=== PATIENT | male | born 1975 ===

== ENCOUNTER 2022-09-17 06:21 | Day surgery (SDC) | payer OTHER, SELFPAY ==
--- NOTE | 2022-09-16 14:34 | HPE_ITS ---
History of Present Illness History of Present Illness Chief Complaint: Left inguinal hernia Narrative: He is here for evaluation of a left-sided inguinal hernia.? He says he first noticed it back in the spring, when he was pushing his riding lawnmower.? He felt a pop in his left groin, and noticed some swelling.? He felt some fullness there, and he was able to push it back down.? Since then, has been fairly stable.? He is able to manage his symptoms pretty well with hernia belt.? On occasion, he notices that it feels a little more full, and he has some discomfort associated with the bowel.? He denies any obstructive symptoms like nausea or vomiting.? He underwent an ultrasound of his left groin after meeting with his primary care physician.? Results of that test demonstrate a fat- containing left-sided inguinal hernia.? Otherwise, he is in good health and his review of systems is negative. Since his last visit to the office, he has been started on rosuvastatin as well as losartan. He is tolerating his medications without any problems. Pertinent Surgical Information Open left-sided inguinal herniorrhaphy with mesh today. PFSH All Active Problems Left inguinal hernia (Acute) Hyperlipidemia (Acute) Elevated blood pressure reading without diagnosis of hypertension (Acute) Medical History Bradycardia Depression HTN (hypertension) Vitamin D deficiency Surgical History History of thumb surgery hardware left side Hx of Achilles tendon repair bilateral Left hydrocele Social History Smoking/Tobacco Use Status: Current every day Tobacco Type: cigarettes Tobacco: How many years used: 10 Smoking risk assessment performed?: Yes Alcohol Intake: current Alcohol Intake frequency: a few times a week Alcohol type: beer Drug use: Occasionally Substance use type: does not use and marijuana Details: 3-4 times week Do you feel safe at home: Yes Do you feel safe in your relationship?: Yes Meds Allergies and Home Medications Allergies Allergy/AdvReac Type Severity Reaction Status Date / Time Penicillins Allergy Unknown Verified 09/17/22 06:31 Home Medications Medication Instructions Recorded Confirmed Type losartan 25 mg tablet 25 mg PO HS 09/15/22 09/17/22 History rosuvastatin 5 mg tablet 5 mg PO HS 09/15/22 09/17/22 History Exam Const General: cooperative, healthy appearing and comfortable Orientation: awake and oriented x3 Eyes General: appearance normal, both eyes and all related structures Conjunctivae: conjunctivae normal Sclera: sclerae normal Resp Effort & Inspection: normal respiratory effort and able to speak in complete sentences Cardio Jugular venous pressure: no JVD Rate: regular rate GI Inspection: non-distended Palpation: soft, no guarding, hernia (Reducible left inguinal) and nontender Auscultation: normal bowel sounds Skin General skin exam: normal turgor Neuro General: patient alert, patient awake and patient oriented x3 Cognition: normal cognition Extrem Right lower extremity: no edema Left lower extremity: no edema
--- NOTE | 2022-09-16 14:35 | PDOC.DSDIS_ITS ---
Date of service: 09/17/22 Time of Service: 09:01 Discharge Plan Disposition Patient Disposition: HOME Condition: Good Discharge Details Reason For Visit: Left inguinal herniorrhaphy Attending Provider: Onur Garvey Primary Care Provider: Unknown,Unknown Home Meds and New Rx's Prescriptions: New tramadol 50 mg tablet 50 mg PO Q8H PRN (Reason: pain) Qty: 9 0RF Rx Instructions: Take 1 tablet by mouth every 8 hours as needed for severe pain. Continued losartan 25 mg Tablet 25 mg PO HS rosuvastatin 5 mg Tablet 5 mg PO HS Discharge Instructions Instructions: Inguinal Hernia Repair (DC) Additional Instructions: 1. Resume all of your medications. 2. Okay to use tylenol and ibuprofen over the counter as needed. 3. Use [] as needed for severe pain. 4. Leave bandage in place for 24 hours, then remove. 5. Shower with warm soapy water. Pat dry. Use a bandaid if needed to protect your clothing. 6. No soaking or tub baths until I see you in the office. 7. No heavy lifting until I see you in the office. 8. Call the office (or go directly to the emergency room after hours) if you notice any of the following: Develop chills (warm to touch), or if you have a thermometer and your temperature is above 101 Difficulty breathing or difficultly swallowing Persistent vomiting Any bleeding ? exceeding one tablespoon 6. Call your physician if the site where your intravenous was started becomes red, swollen, painful, and warm to touch. Referrals: Onur Garvey MD [ [facility] STAFF PHYSICIAN] - Activity:: No heavy lifting Remove Dressings/Wound Care:: 24 hours Shower/Bathe:: 24 hours Diet:: As Tolerated DS: Diagnosis Discharge Diagnosis (1) Left inguinal hernia: Status: Acute Asessment and Plan: Follow-up in my office 10 to 14 days for routine surgical postoperative visit
--- NOTE | 2022-09-16 14:42 | ROE_ITS ---
Date of service: 09/17/22 Time of Service: 08:58 Operative Note Operative Note DATE OF PROCEDURE: 09/17/22 PRE-OP DIAGNOSIS: Left inguinal hernia POST-OP DIAGNOSIS: other (indirect lft inguinal hernia) PROCEDURE: Open left inguinal herniorrhaphy SURGEON: Onur Garvey DERRICKMAN HELPER: Corina Fairbanks ANESTHESIA TYPE: Local By Surgeon and General LMA/ETT Refer to Anesthesia Record ESTIMATED BLOOD LOSS: 50 COMPLICATIONS: None Patient was transported to: PACU Patient's condition: stable Implants: Bard large mesh patch and plug Indications: Chris is a 46 year old male with a symptomatic left inguinal hernia Procedure Description: I began by confirming the correct site with the patient. Next, after induction of general anesthesia, the anesthesia specialists performed ultrasound guided TAP block. Surgical site was then prepped and draped in the usual fashion. I began by making an oblique incision over the left inguinal region. I dissected down through the skin to the deep fascia. Next, I incised the fascia along the length of the inguinal canal to the external ring. I then carefully identified the ilioinguinal nerve. Once this was complete, I bluntly dissected the shelving edge of the inguinal ligament down towards the pubic tubercle. Here, I encircled all cord structures with a [place] drain. Next, I began dissecting the specific cord structures. Great care was taken to spare the vas deferens and the blood supply to the testicle. Next, I isolated the hernia sac from the other inguinal structures. I reduced it back to its normal anatomic position. Using a large Bard mesh plug, and obliterated space, and affixed it in place w ith interrupted Prolene stitch. Next, I buttressed the posterior floor of the inguinal canal with a large mesh patch. I started by fixing it to the pubic tubercle. Next, I used Prolene sutures to affix it to the shelving edge of the inguinal ligament and the conjoined tendon. Laterally I tacked it to the transversalis fascia and reconstructed an internal ring without any strain on the cord structures. Once this was complete, I irrigated the surgical field. It appeared hemostatic. I then closed the anterior portion of the fascia to reconstruct the front wall of the inguinal canal. I did this with Vicryl stitches. Once again, I irrigated the surgical field and inspected for hemostasis. Finally, I approximated the superficial fascia and the deep layers of the skin with absorbable suture. Skin was closed with absorbable sutures. Bandages were applied, the patient was awakened and transferred to the recovery unit.
[2022-09-17] VITALS (7 sets, daily range): BP systolic 105–127; BP diastolic 78–93; PULSE 58–69; RESP 9–18; TEMP 36.2–36.6; O2SAT 96–99; BMI 27.8
--- NOTE | 2022-09-17 06:47 | ANES.PREOP_ITS ---
General Info Date of Service Date Performed: 09/17/22 Height: 5 ft 7 in Weight: 80.7 kg Body Mass Index (BMI): 27.8 Surgical Procedure: Operation Date: 09/17/22 07:40 Proposed Procedure Side Surgeon p Herniorrhaphy Inguinal w/Mesh Left Onur Garvey MD Meds Allergies and Home Medications Allergies Allergy/AdvReac Type Severity Reaction Status Date / Time Penicillins Allergy Unknown Verified 09/17/22 06:31 Home Medication Medication Instructions Recorded losartan 25 mg tablet 25 mg PO HS 09/15/22 rosuvastatin 5 mg tablet 5 mg PO HS 09/15/22 Current Visit Medications: Current Medications Generic Name Dose Route Start Last Admin Trade Name Freq PRN Reason Stop Dose Admin Acetaminophen 1,000 mg 09/17/22 06:00 Acetaminophen 500 Mg Tab PO 10/16/22 23:59 PREOP [facility] Celecoxib 200 mg 09/17/22 06:00 Celecoxib 200 Mg Cap PO 10/16/22 23:59 PREOP [facility] Gabapentin 600 mg 09/17/22 06:00 Gabapentin 300 Mg Cap PO 10/16/22 23:59 PREOP [facility] Ringer's Solution 1,000 mls @ 80 mls/hr 09/17/22 06:00 IV 10/16/22 23:59 INFUSION [facility] Vancomycin/PEG/NADA/Lysine/Water 2 gm in 400 mls @ 200 mls/hr 09/17/22 06:00 Vancocin Injection IV 09/17/22 18:00 PREOP [facility] IV Miscellaneous Supplies 1 each 09/17/22 06:00 Iv Access IV 10/16/22 23:59 DIRECTED CRISTÓBAL Morphine Sulfate 2 mg 09/16/22 14:42 Morphine 4 Mg/Ml Syr IVP Q1H PRN PRN Sodium Chloride 0 ml 09/17/22 06:00 Normal Saline Flush 10 Ml Syr IV 10/16/22 23:59 PRN PRN Sodium Chloride 0 ml 09/17/22 06:00 Normal Saline 10 Ml Vial IJ 10/16/22 23:59 DIRECTED PRN Sterile Water 0 ml 09/17/22 06:00 Water,Injection,Sterile 10 Ml Vial IJ 10/16/22 23:59 DIRECTED PRN Tramadol HCl 50 mg 09/16/22 14:42 Tramadol 50 Mg Tab PO Q6H PRN PRN Pain PFSH Active Problems Active Problems: Problem Status Onset Code Left inguinal hernia K40.90 Hyperlipidemia E78.5 Elevated blood pressure reading without diagnosis of hypertension R03.0 Medical History Medical History Bradycardia Depression HTN (hypertension) Vitamin D deficiency Surgical History Surgical History History of thumb surgery hardware left side Hx of Achilles tendon repair bilateral Left hydrocele Tobacco Smoking/Tobacco Use Status: Current every day Tobacco Type: cigarettes Smoking cigarettes per day: 10 Alcohol Alcohol Intake: current Alcohol intake frequency: a few times a week Alcohol type: beer Substance Use Substance use: Occasionally Substance use type: does not use and marijuana Details: 3-4 times week Vital Signs and Lab Results Vital Signs Most Recent Vital Signs in EMR: Most Recent Vital Signs Temp Pulse Resp BP Pulse Ox 36.4 C L 65 16 121/88 99 09/17/22 06:34 09/17/22 06:34 09/17/22 06:34 09/17/22 06:34 09/17/22 06:34 Lab Results Blood Type / Crossmatch: No Data to Display Complete Blood Count: No Data to Display Complete Metabolic Panel: No Data to Display Liver Function Panel: No Data to Display Coagulation Panel: No Data to Display Cardiac Panel: No Data to Display Arterial Blood Gas: No Data to Display Venous Blood Gas: No Data to Display Pancreas Panel: No Data to Display Thyroid Panel: No Data to Display Infectious Disease: No Data to Display Blood Cultures: No Data to Display Toxicology Panel: No Data to Display Anesthesia Assessment and Plan Anesthesia History Personal History: No History of Anesthesia Complications Family History: No Family History of Anesthesia Complications Exercise Tolerance Exercise Tolerance: Metabolic Equivalents>4 Pertinent Negatives Pertinent Negatives: No Symptoms of GERD and No History of CVA/TIA Cardiac & Pulmonary Exam Cardiac Exam: Normal S1/S2 Heart Sounds Pulmonary Exam: Clear Bilateral Breath Sounds Implantable Cardiac Device Does patient have a Pacemaker or an ICD?: No Airway Exam Known Difficult Airway: No Mallampati Class: 2 Mouth Opening: Normal (> 3cm) Thyromental Distance: Greater than 3 cm Neck Range of Motion: Full ROM Neck Circumference: Normal Teeth Condition: Normal Dentition ASA Classification ASA Score: ASA 2 Emergency Case?: No NPO Status NPO Status: NPO Clears >2 hours, Solids >8 hours Anesthesia Plan Resuscitation Status: Full Code Anesthesia Technique: General Anesthesia Airway Planned: LMA Pain Management: Surgeon and patient request nerve block Monitors Used: Standard Monitors
[2022-09-17] MEDS: Lactated Ringers 1,000 ML 80 ML IV (07:00)
[2022-09-17] MEDS: Gabapentin 300 MG CAP 600 MG PO (07:07)
[2022-09-17] MEDS: Acetaminophen 500 MG TAB 1000 MG PO (07:07)
[2022-09-17] MEDS: Celecoxib 200 MG CAP PO (07:08)
[2022-09-17] MEDS: VANCOMYCIN/WATER (PEG) 2 GM/400 ML BAG IV (07:08)
--- NOTE | 2022-09-17 08:21 | W.ANESNERVE ---
Nerve Block Single Injection Procedure Date and Time Date Performed: 09/17/22 Procedure Start: 07:43 Location Where Procedure Performed Procedure Location: Operating Room Procedure Stop: 07:48 Reason Performed: Postoperative Analgesia Requesting Provider: Onur Garvey Timeout Performed Timeout Performed: Yes Monitoring Used ECG, Blood Pressure, SpO2 and ETCO2 Sterility Sterility: Hand Hygiene, Surgical Cap, Surgical Mask, Sterile Gloves and Chlorhexidine Sedation Given During Procedure Sedation Given (Indicate Dose Given): No Sedation given Patient Mental Status Patient Mental Status: Performed under general anesthesia Nerve Block 1st Nerve Block: Laterality: Left Block Type: TAP Unilateral Needle / Catheter Used: 100mm SonoPlex II Local Anesthetic Bolus (Indicate Dose Given): None Additives (Indicate Dose Given): None Ultrasound: Sterile probe cover and gel used Ultrasound Image Saved?: Yes Nerve Stimulator: Not Used Paresthesia: None Procedure Tolerated: No Complications and Patient tolerated well Procedure Outcome: Successful Performed By: Fernando Chavez
[2022-09-17] MEDS: Bupivacaine 0.5% Pres-Free W/EPI 10 ML VIAL (08:50)
--- NOTE | 2022-09-17 09:03 | PDOC.DSDIS_ITS ---
Date of service: 09/17/22 Time of Service: 09:04 Discharge Plan Disposition Patient Disposition: HOME Condition: Good Discharge Details Reason For Visit: Left inguinal herniorrhaphy Attending Provider: Onur Garvey Primary Care Provider: Unknown,Unknown Home Meds and New Rx's Prescriptions: New tramadol 50 mg tablet 50 mg PO Q8H PRN (Reason: pain) Qty: 9 0RF Rx Instructions: Take 1 tablet by mouth every 8 hours as needed for severe pain. Continued losartan 25 mg Tablet 25 mg PO HS rosuvastatin 5 mg Tablet 5 mg PO HS Discharge Instructions Instructions: Inguinal Hernia Repair (DC) Additional Instructions: 1. Resume all of your medications. 2. Okay to use tylenol and ibuprofen over the counter as needed. 3. Use tramadol follow up as needed for severe pain. 4. Leave bandage in place for 24 hours, then remove. 5. Shower with warm soapy water. Pat dry. Use a bandaid if needed to protect your clothing. 6. No soaking or tub baths until I see you in the office. 7. No heavy lifting until I see you in the office. 8. Call the office (or go directly to the emergency room after hours) if you notice any of the following: Develop chills (warm to touch), or if you have a thermometer and your temperature is above 101 Difficulty breathing or difficultly swallowing Persistent vomiting Any bleeding ? exceeding one tablespoon 6. Call your physician if the site where your intravenous was started becomes red, swollen, painful, and warm to touch. Referrals: Onur Garvey MD [ [facility] STAFF PHYSICIAN] - Activity:: No heavy lifting Remove Dressings/Wound Care:: 24 hours Shower/Bathe:: 24 hours Diet:: As Tolerated DS: Diagnosis Discharge Diagnosis (1) Left inguinal hernia: Status: Acute
--- NOTE | 2022-09-17 10:02 | W.ANESPOSTOP ---
Postoperative Evaluation Date, Time and Location Date Performed: 09/17/22 Time Performed: 09:30 Patient Location: Day Surgery Unit Vital Signs Most Recent Imported Vital Signs: Most Recent Vital Signs Temp Pulse Resp BP Pulse Ox 36.4 C L 60 16 116/85 97 09/17/22 09:25 09/17/22 09:25 09/17/22 09:25 09/17/22 09:25 09/17/22 09:25 Pain Score Most Recent Pain Score: Most Recent Pain Score Pain Level 5 09/17/22 09:25 Assessment Mental Status: Awake (Alert & Oriented to Patient Baseline) Airway and Respiratory Function: Patent airway with normal (patient baseline) respiratory exam Cardiovascular Function: Hemodynamically Stable Hydration Status: Adequately Hydrated Nausea & Vomiting: No Nausea or Vomiting Pain: Pain is tolerable per patient Peripheral Nerve Block: Regional nerve block not resolved at time of post operative discharge
== END 2022-09-17 10:38 | disposition home or self-care (01) ==
PROVIDERS: Visit Provider Surgery
PROC: (CPT 49505; principal; 2022-09-17 07:30)
DX: K40.90 Unilateral inguinal hernia, without obstruction or gangrene, not specified as recurrent (principal); R00.1 Bradycardia, unspecified; F32.A Depression, unspecified; I10 Essential (primary) hypertension; E55.9 Vitamin D deficiency, unspecified
CPT/HCPCS: 49505; 76942; C1781; J1100; J2250; J2405; J2704; J3010